=== PATIENT | male | born 1995 | race Caucasian/White ===

== ENCOUNTER 2017-06-11 15:53 | Emergency (ER) | payer OTHER ==
[~2017-06-11 15:53] MED LIST: Iopamidol 370 76% 100 ML VIAL ONE
[2017-06-11] MEDS ORDERED: Famotidine/PF 20 mg/2ml Vial ONE (16:50)
[2017-06-11] MEDS ORDERED: Ondansetron HCl/PF 4 MG/2 ML Vial ONE (16:50)
[2017-06-11 17:14] LABS: Band 1 % (5-11); Hematocrit 49.9 % (42.0-52.0); Mean Platelet Volume 7.3 fL (7.4-10.4); Neutrophil 80 % (42-75); Reactive Lymphocytes 4 % (0-10); Red Blood Cell (RBC) Count 5.69 mill/uL (4.70-6.10); Vacuoles SLIGHT; White Blood Cell (WBC) Count 16.1 thou/uL (4.8-10.8)
[2017-06-11 17:17] LABS: Lactic Acid - Sepsis 1.3 mmol/L (0.5-2.2)
[2017-06-11 17:22] LABS: ALT (SGPT) 28 U/L (8-55); AST (SGOT) 19 U/L (5-34); Alkaline Phosphatase 83 U/L (40-150); Anion Gap 16 mmol/L (10-20); BUN (Urea Nitrogen) 9 mg/dL (8.9-20.6); Bilirubin, Total 2.1 mg/dL (0.2-1.2); Calc. Creatinine Clearance 0 mL/min (70-130); Calcium 10.4 mg/dL (7.8-10.44); Carbon Dioxide 28 mmol/L (22-29); Chloride 100 mmol/L (98-107); Estimated GFR-MDRD Greater than 90; Globulin 3.3 g/dL (2.4-3.5); Lipase 16 U/L (8-78); Protein, Total 8.4 g/dL (6.0-8.3)
[2017-06-11] MEDS ORDERED: Metoclopramide HCl 10 MG/2 ML VIAL ONE (17:55)
--- NOTE | 2017-06-11 18:46 | CT ---
CT ABDOMEN AND PELVIS WITH IV CONTRAST 06/11/17 HISTORY: Abdominal pain. Vomiting. FINDINGS: No comparison. The lung bases are clear. The liver, spleen, kidneys, adrenal gland and pancreas are w ithin normal limits. No enlarged lymph nodes or free fluid are apparent. Lack of oral contrast limits evaluation of the bowel. Hyperdense material is present within the appendix. It does not appear inf lamed. Large amount of stool is present throughout the colon and rectum. IMPRESSION: Constipation. POS: DANIEL
== END 2017-06-11 20:42 | disposition home or self-care (01) ==
LOC: SCSER 15:53
DX: R11.2 Nausea with vomiting, unspecified (principal); R10.30 Lower abdominal pain, unspecified
CPT/HCPCS: 74177; 80053; 83605; 83690; 85025; 96361; 96365; 96372; 96375; J2405; J2765; S0028

== ENCOUNTER 2017-10-11 18:10 | Outpatient (CLI) | payer OTHER ==
--- NOTE | 2017-10-11 18:53 | RAD ---
TWO VIEWS OF THE RIGHT HEEL 10/11/17 COMPARISON: None. HISTORY: Jump from five feet and landed on heel with right heel pain. FINDINGS: Two views of the right heel shows no evidence of fracture or dislocation. Mild soft tissue swelling i s seen. No degenerative changes are present. IMPRESSION: No evidence of acute osseous abnormality. POS: CL
--- NOTE | 2017-10-11 18:55 | RAD ---
THREE VIEWS LUMBOSACRAL SPINE: 10/11/17 COMPARISON: None. HISTORY: Patient jumped from five feet and landed on her right heel. Low back pain two hours after the acciden t. FINDINGS: Three views of the lumbosacral spine shows normal height and alignment of the vertebral bodies and in tervertebral discs without fracture or subluxation. No degenerative changes are seen. IMPRESSION: Unremarkable exam. POS: DANIEL
== END 2017-10-11 18:11 | disposition home or self-care (01) ==
LOC: SCSRAD 18:10
PROVIDERS: ATTEND Physician Assistant
DX: M54.5 Low back pain (principal); M79.671 Pain in right foot
CPT/HCPCS: 72100